=== PATIENT | male | born 1990 | race Caucasian/White ===

== ENCOUNTER 2023-05-06 21:25 | Emergency (ER) | payer MEDICAID ==
[~2023-05-06] VITALS: Ht 177.8 cm; Wt 90.7 kg
[2023-05-06 21:59] VITALS: BP 116/74; PULSE 87; RESP 18; TEMP 98.4; O2SAT 100
[2023-05-06 22:00] LABS: BASOPHILS % (AUTO) 0.5 % (0.0-2.0); EOSINOPHILS # (AUTO) 0.3 K/uL (0-0.4); EOSINOPHILS % (AUTO) 3.9 % (0.0-4.0); HEMATOCRIT 41.6 % (36-52); HEMOGLOBIN 14.3 g/dL (12.0-18.0); LYMPHOCYTES # (AUTO) 3.7 K/uL (2.0-11.5); LYMPHOCYTES % (AUTO) 42.8 % (20.5-51.1); MEAN CORPUSCULAR HEMOGLOBIN 30 pg (27-31); MEAN CORPUSCULAR HGB CONC 34 g/dL (33-37); NEUTROPHILS # (AUTO) 3.6 K/uL (1.8-7.7); NEUTROPHILS % (AUTO) 41.8 % (42.2-75.2); PLATELET COUNT (AUTO) 233 K/uL (140-450); RED BLOOD CELL COUNT(AUTO) 4.78 MIL/uL (4.20-6.10); RED CELL DISTRIBUTION WIDTH 12.7 % (11.6-13.7); WHITE BLOOD COUNT (AUTO) 8.7 K/uL (4.8-10.8)
[2023-05-06 22:07] LABS: ANION GAP 10.7 (8-16); CALCIUM 8.3 mg/dL (8.5-10.1); CARBON DIOXIDE 27.1 mmol/L (21-32); POTASSIUM 3.8 mmol/L (3.5-5.1)
[2023-05-06] MEDS ORDERED: HYDR25SU37 RC (23:41)
[2023-05-06] MEDS ORDERED: ACET-2619 PO (23:41)
[2023-05-07 00:30] VITALS: BP 116/74; PULSE 87; RESP 18; TEMP 98.4; O2SAT 100
== END 2023-05-07 00:30 | disposition home or self-care (01) ==
LOC: MED 21:25
DX: K62.5 Hemorrhage of anus and rectum (principal); Z79.899 Other long term (current) drug therapy
CPT/HCPCS: 36415; 80048; 85025; 99283